=== PATIENT | male | born 1980 | race Caucasian/White ===

== ENCOUNTER 2020-11-16 10:48 | Emergency (ER) | payer BC ==
[2020-11-16 13:16] LABS: HEMOGLOBIN 16.4 gm/dl (14.0-17.5); WHITE BLOOD COUNT 4.3 K/UL (4.5-11.0)
[2020-11-16 13:36] LABS: BUN/CREATININE RATIO 16 (0-10)
[2020-11-16] MEDS ORDERED: ATROVENT-HFA12.9 GM INH (15:24)
[2020-11-16] MEDS ORDERED: ZOFRAN4 MG PO (15:24)
[2020-11-16] MEDS ORDERED: ZITHROMAX250 MG PO (15:24)
[2020-11-16] MEDS ORDERED: DELSYM30 MG/5 ML PO (15:24)
== END 2020-11-16 15:43 | disposition home or self-care (01) ==
LOC: ER1 10:48
PROVIDERS: Internal Medicine
DX: U07.1 COVID-19 (principal); E11.9 Type 2 diabetes mellitus without complications; I10 Essential (primary) hypertension; K21.9 Gastro-esophageal reflux disease without esophagitis
CPT/HCPCS: 71045; 80053; 81001; 83690; 85025; 96374; 99284; J2405; J7030; U0002